=== PATIENT | female | born 1960 ===

== ENCOUNTER → 2017-10-30 | Outpatient (REF) | payer BC ==
[2017-10-30 19:24] LABS: URIC ACID 6.1 MG/DL (2.6-6.0)
[2017-10-30 19:24] LABS: C REACTIVE PROTEIN QUANTITATIV 1.07 MG/DL (0.00-0.30); RHEUMATOID FACTOR QUANT < 10.0 IU/ML (<15.0)
[2017-10-30 20:31] LABS: ERYTHROCYTE SEDIMENTATION RATE 10 mm/hr (0-30)
[2017-11-02 00:06] LABS: ANTINUCLEAR ANTIBODIES DIRECT Negative (Negative); Lyme Disease IgG/IgM Antibodie <0.91 ISR (0.00-0.90); Lyme Disease IgM Ab Quantitati <0.80 index (0.00-0.79)
== END ==
LOC: M LABDRAW1 17:41
DX: M25.462 Effusion, left knee (principal)